=== PATIENT | male | born 1970 | race Caucasian/White ===

== ENCOUNTER 2025-04-19 23:17 | Emergency (ER) | payer SELFPAY ==
[~2025-04-19] VITALS: Ht 180.3 cm; Wt 84.0 kg
[2025-04-19 23:19] VITALS: BP 134/88; PULSE 100; RESP 18; TEMP 98.4; O2SAT 98
== END 2025-04-20 00:05 | disposition left against medical advice (07) ==
LOC: ER 23:17
DX: R55 Syncope and collapse (principal); Z98.890 Other specified postprocedural states
CPT/HCPCS: 99283